=== PATIENT | female | born 1950 | race Hispanic/Latino ===

== ENCOUNTER → 2017-10-12 | Outpatient (CLI) | payer OTHER ==
--- NOTE | 2017-10-18 08:32 | Diagnostic Imaging Report ---
#[id number] - MGSCRBIL #BILATERAL DIGITAL SCREENING MAMMOGRAM WITH CAD: 10/12/2017 CLINICAL: Routine screening. Comparison is made to exams dated: 02/21/2016 mammogram, 03/24/2014 mammogram, 03/24/2014 ultrasound and 01/10/2014 mammogram - [facility]. Current study contains 4 films. There are scattered fibroglandular elements in both breasts. Current study was also evaluated with a Computer Aided Detection (CAD) system. There are benign calcifications in both breasts. There also is a stable benign cyst in the left breast. No significant masses, calcifications, or other findings are seen in either breast. There has been no significant interval change. IMPRESSION: BENIGN There is no mammographic evidence of malignancy. A 1 year screening mammogram is recommended. The patient will be notified by letter of the results. Mervin Napoles Jr., D.O. cw/:10/17/2017 12:15:46 [employer]: TIMMY TIPTON, [facility] letter sent: Compared to Prior B9 Mammogram BI-RADS: 2 Benign
== END | disposition home or self-care (01) ==
LOC: MAMMO 09:15
PROVIDERS: ATTEND Internal Medicine
DX: Z12.31 Encounter for screening mammogram for malignant neoplasm of breast (principal)
CPT/HCPCS: 77067

== ENCOUNTER 2024-11-07 19:07 | Inpatient (IN) | payer OTHER ==
[~2024-11-07] VITALS: Ht 165.1 cm; Wt 105.7 kg
[2024-11-07 19:23] VITALS: TEMP 98.1
[2024-11-07 19:55] LABS: BASOPHILS % 0.3 % (0.0-1.0); EOSINOPHILS % 0.1 % (0.0-6.0); LYMPHOCYTES % 41.2 % (18.0-39.1); MONOCYTES % 6.3 % (4.4-11.3); NEUTROPHILS % 51.0 % (38.7-80.0); RED CELL DISTRIBUTION WIDTH 19.4 % (11.7-14.4)
[2024-11-07 20:11] LABS: LEUKOCYTE ESTERASE ,URINE MODERATE (NEGATIVE); PROTEIN,URINE DIPSTICK 2+ (NEGATIVE); URINE UROBILINOGEN 0.2 mg/dL (0.2 - 1)
[2024-11-07 20:12] LABS: EPITHELIAL CELLS,URINE RARE /LPF; WBC,URINE (MAN) 21-50 /HPF (0-5)
[2024-11-07] MEDS: ONDANSETRON HCL INJ 2MG/ML 2ML 2 MG/ML VIAL IV STA (20:16)
[2024-11-07] MEDS: Morphine 4mg INJECTION 4 MG/ML INJ IV STA (20:17)
[2024-11-07] MEDS: SODIUM CHLORIDE 0.9% 1000ML 1,000 ML IV STA ×2 (20:17)
[2024-11-07 20:19] LABS: EST GLOMERULAR FILTRATION RATE 94.0 ML/MIN (>=60)
[2024-11-07 20:31] LABS: LYMPHOCYTES % (MANUAL) 43 % (19-48); MONOCYTES % (MANUAL) 5 % (3.4-9.0); NEUTROPHILS % (MANUAL) 52 % (40-74); RBC MORPHOLOGY COMMENT NORMAL
[2024-11-07 20:32] LABS: PLATELET ESTIMATE ADEQUATE; PLATELET MORPHOLOGY COMMENT NORMAL
[2024-11-07] MEDS ORDERED: IOPAMIDOL 370 MG/ML 100 ML INFUS..BTL INJ ONE (20:47)
[2024-11-07] MEDS: ACETAMINOPHEN 325 MG TAB PO STA (21:37)
[2024-11-07 22:10] VITALS: PULSE 102; RESP 20; O2SAT 97
[2024-11-08] VITALS (11 sets, daily range): BP systolic 106–120; BP diastolic 57–90; PULSE 112–128; RESP 20–23; TEMP 97.4–98.5; O2SAT 95–100
[2024-11-08] MEDS ORDERED: BENZOCAINE 20% SPR 60 ML CAN ONE (00:09)
[2024-11-08] MEDS: SODIUM CHLORIDE 0.9% 1000ML 1,000 ML IV SCH (00:12)
[2024-11-08] MEDS: BENZOCAINE 20% SPR 60 ML CAN MT STA (00:12)
[2024-11-08] MEDS: Morphine 4mg INJECTION 4 MG/ML INJ IV PRN (02:55)
[2024-11-08 06:46] LABS: BASOPHILS % 0.2 % (0.0-1.0); EOSINOPHILS % 0.0 % (0.0-6.0); LYMPHOCYTES % 26.5 % (18.0-39.1); MONOCYTES % 5.0 % (4.4-11.3); NEUTROPHILS % 67.2 % (38.7-80.0); RED CELL DISTRIBUTION WIDTH 19.5 % (11.7-14.4)
[2024-11-08 07:36] LABS: EST GLOMERULAR FILTRATION RATE 92.0 ML/MIN (>=60)
[2024-11-08] MEDS: ONDANSETRON HCL INJ 2MG/ML 2ML 2 MG/ML VIAL IV PRN (08:17)
[2024-11-08 08:19] LABS: CHOL/HDL RATIO 2.8 (3.0-3.6); LDL CHOLESTEROL 42.0 MG/DL (60-130); PHOSPHORUS 3.8 MG/DL (2.3-4.7)
[2024-11-08 09:18] LABS: ABG PCO2 21 mmHg (35-45); ABG PH 7.36 (7.35-7.45); ABG PO2 96 mmHg (80-105)
[2024-11-08 09:19] LABS: ABG BASE EXCESS -13.0 mmol/L (-2 - 3); ABG HCO3 12 mmol/L (22-26); ABG OXYGEN SATURATION 97.0 % (95-98); ABG TCO2 13
[2024-11-08] MEDS: POTASSIUM CHLORIDE 20MEQ/100ML 100 ML IV ONE (09:50)
[2024-11-08] MEDS: HYDROMORPHONE 1MG/1ML INJ IV ONE (09:50)
[2024-11-08] MEDS: MAGNESIUM SULF 1GRAM/DEXTROSE 100 ML IV ONE (09:50)
[2024-11-08] MEDS ORDERED: MAALOX MAXIMUM355 ML PO (11:39)
[2024-11-08] MEDS ORDERED: PEPCID20 MG PO (11:39)
[2024-11-08] MEDS ORDERED: GUAIFENESI100 MG/5 M PO (11:39)
[2024-11-08] MEDS ORDERED: METOPROLOL SUCC50 MG PO (11:39)
[2024-11-08] MEDS ORDERED: TYLENOL EXTRA500 MG PO (11:39)
[2024-11-08] MEDS ORDERED: MULTI-VITAMIN1 EACH PO (11:39)
[2024-11-08] MEDS ORDERED: FEROSUL325 MG PO (11:39)
[2024-11-08] MEDS ORDERED: ALBUTEROL0.63 MG/3 NEB (11:39)
[2024-11-08] MEDS ORDERED: TRAZODONE HCL50 MG PO (11:39)
[2024-11-08] MEDS ORDERED: ULTRAM 50MG50 MG PO (11:39)
[2024-11-08] MEDS ORDERED: ONDANSETRON ODT4 MG PO (11:39)
[2024-11-08] MEDS ORDERED: VITAMIN B-1100 M1 PO (11:39)
[2024-11-08] MEDS ORDERED: POTASSIUM CHLO20 ME1 PO (11:39)
[2024-11-08] MEDS ORDERED: ELIQUIS5 MG PO (11:39)
[2024-11-08] MEDS ORDERED: MILK OF MA2400 MG/10 PO (11:39)
[2024-11-08] MEDS ORDERED: VENLAFAXINE H37.5 M2 PO (11:47)
[2024-11-08] MEDS ORDERED: HYDRALAZINE HCL10 MG PO (11:47)
[2024-11-08 12:01] LABS: LYMPHOCYTES % (MANUAL) 30 % (19-48); MONOCYTES % (MANUAL) 5 % (3.4-9.0); NEUTROPHILS % (MANUAL) 65 % (40-74); PLATELET ESTIMATE ADEQUATE; PLATELET MORPHOLOGY COMMENT NORMAL
[2024-11-08] MEDS: HYDROMORPHONE 1MG/1ML INJ IV PRN (15:22)
[2024-11-08] MEDS ORDERED: ALBUTEROL SULF 0.083% NEB SOLN 3 ML NEB NEB PRN (17:15)
[2024-11-08] MEDS: SODIUM BICARBONATE 8.4% VIAL 50 ML in SODIUM CHLORIDE 0.45% 1,000 ML IV SCH (17:39)
[2024-11-09] VITALS (10 sets, daily range): BP systolic 94–115; BP diastolic 63–87; PULSE 112–128; RESP 16–22; TEMP 97.4–98.4; O2SAT 96–100
[2024-11-09] MEDS: METOCLOPRAMIDE HCL 10 MG/2ML VIAL IV SCH (00:13)
[2024-11-09 08:17] LABS: BASOPHILS % 0.1 % (0.0-1.0); EOSINOPHILS % 0.0 % (0.0-6.0); LYMPHOCYTES % 31.7 % (18.0-39.1); MONOCYTES % 4.6 % (4.4-11.3); NEUTROPHILS % 62.3 % (38.7-80.0); RED CELL DISTRIBUTION WIDTH 19.8 % (11.7-14.4)
[2024-11-09 08:51] LABS: EST GLOMERULAR FILTRATION RATE 72.0 ML/MIN (>=60)
[2024-11-09] MEDS: MEROPENEM 1 GM in SODIUM CHLORIDE 0.9% 100 ML IV ONE (09:40)
[2024-11-09] MEDS: KETOROLAC TROMETHAMINE 30 MG/ML VIAL IV PRN ×2 (10:01→17:39)
[2024-11-09] MEDS: METOPROLOL TARTRATE INJ 1 MG/ML VIAL IV PRN (21:07)
[2024-11-09] MEDS: ALBUMIN 25% 12.5GM 0.25 GM/ML BTL IV STA (21:52)
[2024-11-09] MEDS: ALBUMIN 25% 25GM 100ML 0.25 GM/ML BTL IV SCH (23:11)
[2024-11-10] VITALS (13 sets, daily range): BP systolic 92–127; BP diastolic 63–84; PULSE 100–125; RESP 18–29; TEMP 97.6–98.2; O2SAT 94–100
[2024-11-10 05:44] LABS: BASOPHILS % 0.0 % (0.0-1.0); EOSINOPHILS % 0.0 % (0.0-6.0); LYMPHOCYTES % 20.0 % (18.0-39.1); MONOCYTES % 1.7 % (4.4-11.3); NEUTROPHILS % 77.9 % (38.7-80.0); RED CELL DISTRIBUTION WIDTH 19.4 % (11.7-14.4)
[2024-11-10 06:13] LABS: EST GLOMERULAR FILTRATION RATE 64.0 ML/MIN (>=60)
[2024-11-10] MEDS: SODIUM CHLORIDE 0.9% 250ML 250 ML IV ONE ×2 (08:02)
[2024-11-10 08:26] LABS: BAND NEUTROPHILS % (MANUAL) 3 %; LYMPHOCYTES % (MANUAL) 22 % (19-48); MONOCYTES % (MANUAL) 1 % (3.4-9.0); NEUTROPHILS % (MANUAL) 73 % (40-74); PLATELET ESTIMATE ADEQUATE; PLATELET MORPHOLOGY COMMENT NORMAL; REACTIVE LYMPHOCYTES 1
[2024-11-10] MEDS: IRON SUCROSE 100 MG in SODIUM CHLORIDE 0.9% 100 ML IV SCH (08:59)
[2024-11-10] MEDS ORDERED: IOPAMIDOL 370 MG/ML 100 ML INFUS..BTL INJ ONE (09:27)
[2024-11-10] MEDS: SODIUM CHLORIDE 0.9% 250ML 250 ML ONE ×2 (12:02→14:56)
[2024-11-10 20:25] LABS: BASOPHILS % 0.2 % (0.0-1.0); EOSINOPHILS % 0.0 % (0.0-6.0); LYMPHOCYTES % 20.8 % (18.0-39.1); MONOCYTES % 1.6 % (4.4-11.3); NEUTROPHILS % 76.4 % (38.7-80.0); RED CELL DISTRIBUTION WIDTH 17.5 % (11.7-14.4)
[2024-11-10 20:40] LABS: EST GLOMERULAR FILTRATION RATE 58.0 ML/MIN (>=60)
[2024-11-11] VITALS (18 sets, daily range): BP systolic 108–140; BP diastolic 68–98; PULSE 116–128; RESP 25–35; TEMP 97.7–98.7; O2SAT 92–97
[2024-11-11 05:19] LABS: BASOPHILS % 0.1 % (0.0-1.0); EOSINOPHILS % 0.0 % (0.0-6.0); LYMPHOCYTES % 24.0 % (18.0-39.1); MONOCYTES % 2.1 % (4.4-11.3); NEUTROPHILS % 72.5 % (38.7-80.0); RED CELL DISTRIBUTION WIDTH 17.9 % (11.7-14.4)
[2024-11-11 06:10] LABS: EST GLOMERULAR FILTRATION RATE 55.0 ML/MIN (>=60)
[2024-11-11] MEDS: SODIUM CHLORIDE 0.9% 250ML 250 ML IV ONE (08:34)
[2024-11-11 10:33] LABS: BAND NEUTROPHILS % (MANUAL) 1 %; LYMPHOCYTES % (MANUAL) 13 % (19-48); NEUTROPHILS % (MANUAL) 85 % (40-74); PLATELET ESTIMATE ADEQUATE; PLATELET MORPHOLOGY COMMENT NORMAL; REACTIVE LYMPHOCYTES 1
[2024-11-11] MEDS: SODIUM BICARBONATE 8.4% VIAL 100 ML in DEXTROSE 5% 1,000 ML IV ONE (12:47)
[2024-11-11] MEDS: SODIUM CHLORIDE 0.9% 250ML 250 ML ONE (21:00)
[2024-11-12] VITALS (12 sets, daily range): BP systolic 114–133; BP diastolic 73–94; PULSE 125–144; RESP 24–34; TEMP 98.2–98.4; O2SAT 95–98
[2024-11-12 05:24] LABS: BASOPHILS % 0.7 % (0.0-1.0); EOSINOPHILS % 0.0 % (0.0-6.0); LYMPHOCYTES % 16.3 % (18.0-39.1); MONOCYTES % 2.0 % (4.4-11.3); NEUTROPHILS % 79.9 % (38.7-80.0); RED CELL DISTRIBUTION WIDTH 17.4 % (11.7-14.4)
[2024-11-12 05:56] LABS: EST GLOMERULAR FILTRATION RATE 46.0 ML/MIN (>=60)
[2024-11-12] MEDS ORDERED: SODIUM BICARBONATE 8.4% SYRING 50 ML in DEXTROSE 5% 1,000 ML IV ONE (08:30)
[2024-11-12 08:51] LABS: ABG BASE EXCESS -10.0 mmol/L (-2 - 3); ABG HCO3 16 mmol/L (22-26); ABG OXYGEN SATURATION 98.0 % (95-98); ABG PCO2 29 mmHg (35-45); ABG PH 7.34 (7.35-7.45); ABG PO2 107 mmHg (80-105); ABG TCO2 16
[2024-11-12] MEDS: SODIUM BICARBONATE 8.4% VIAL 50 ML in DEXTROSE 5% 1,000 ML IV ONE (09:35)
[2024-11-12 10:25] LABS: BAND NEUTROPHILS % (MANUAL) 2 %; LYMPHOCYTES % (MANUAL) 6 % (19-48); METAMYELOCYTES % (MANUAL) 1 % (0-0); NEUTROPHILS % (MANUAL) 80 % (40-74); NUCLEATED RED BLOOD CELLS 1; PLATELET ESTIMATE ADEQUATE; PLATELET MORPHOLOGY COMMENT NORMAL; RBC MORPHOLOGY COMMENT NORMAL; REACTIVE LYMPHOCYTES 11
[2024-11-13 09:29] LABS: ABG BASE EXCESS -13.0 mmol/L (-2 - 3); ABG HCO3 12 mmol/L (22-26); ABG OXYGEN SATURATION 97.0 % (95-98); ABG PCO2 21 mmHg (35-45); ABG PH 7.36 (7.35-7.45); ABG PO2 96 mmHg (80-105); ABG TCO2 13
[2024-11-13 09:30] LABS: ABG BASE EXCESS -10.0 mmol/L (-2 - 3); ABG HCO3 16 mmol/L (22-26); ABG OXYGEN SATURATION 98.0 % (95-98); ABG PCO2 29 mmHg (35-45); ABG PH 7.34 (7.35-7.45); ABG PO2 107 mmHg (80-105); ABG TCO2 16
== END 2024-11-12 12:25 | disposition short-term general hospital (02) | DRG 871 ==
LOC: ER 19:09 → ERHOLD 22:12 → MED/SURG 11-08 02:18 → ICU 11-10 18:21
PROVIDERS: ADMIT Internal Medicine; ATTEND Internal Medicine
PROC: 3E0333Z Introduction of Anti-inflammatory into Peripheral Vein, Percutaneous Approach (ICD-10-PCS; principal; 2024-11-07)
PROC: 4A133R1 Monitoring of Arterial Saturation, Peripheral, Percutaneous Approach (ICD-10-PCS; 2024-11-08)
PROC: 30233N1 Transfusion of Nonautologous Red Blood Cells into Peripheral Vein, Percutaneous Approach (ICD-10-PCS; 2024-11-10)
DX: A41.9 Sepsis, unspecified organism (principal); K65.9 Peritonitis, unspecified; N17.0 Acute kidney failure with tubular necrosis; E87.21 Acute metabolic acidosis; K56.0 Paralytic ileus; N39.0 Urinary tract infection, site not specified; K82.1 Hydrops of gallbladder; Z16.12 Extended spectrum beta lactamase (ESBL) resistance; Z16.24 Resistance to multiple antibiotics; J98.11 Atelectasis; E44.0 Moderate protein-calorie malnutrition; R65.20 Severe sepsis without septic shock; B96.1 Klebsiella pneumoniae [K. pneumoniae] as the cause of diseases classified elsewhere; R62.7 Adult failure to thrive; E88.09 Other disorders of plasma-protein metabolism, not elsewhere classified; I10 Essential (primary) hypertension; R00.0 Tachycardia, unspecified; E86.0 Dehydration; E87.6 Hypokalemia; R74.8 Abnormal levels of other serum enzymes; D50.0 Iron deficiency anemia secondary to blood loss (chronic); C55 Malignant neoplasm of uterus, part unspecified; N63.0 Unspecified lump in unspecified breast; R11.2 Nausea with vomiting, unspecified; K52.9 Noninfective gastroenteritis and colitis, unspecified; M19.90 Unspecified osteoarthritis, unspecified site; N93.9 Abnormal uterine and vaginal bleeding, unspecified; F41.9 Anxiety disorder, unspecified; E66.01 Morbid (severe) obesity due to excess calories; Z68.38 Body mass index [BMI] 38.0-38.9, adult; Z86.718 Personal history of other venous thrombosis and embolism; Z95.828 Presence of other vascular implants and grafts
CPT/HCPCS: 36415; 36600; 74018; 74019; 74021; 74177; 76705; 80048; 80053; 80061; 81001; 82550; 82607; 82746; 82805; 83036; 83540; 83605; 83690; 83735; 84100; 84439; 84443; 84466; 84484; 85014; 85018; 85025; 85045; 86140; 86850; 86900; 86920; 87040; 87086; 87186; 93005; 93306; 94799; 99285; J1171; J1756; J1885; J2185; J2270; J2405; J2470; J2543; J2765; J3475; J3480; J7030; J7050; J7070; P9016; P9047; Q9967